=== PATIENT | male | born 1960 | race Caucasian/White ===

== ENCOUNTER 2018-06-29 20:48 | Emergency (ER) | payer BC ==
[~2018-06-29] VITALS: Ht 190.5 cm; Wt 113.6 kg
[2018-06-29 20:49] VITALS: TEMP 98.2
[2018-06-29 21:06] LABS: BASO # 0.1 (0.0-0.2); BASO % 0.4 % (0.0-2.0); EOS # 0.3 (0.0-0.7); EOS % 2.1 % (0-4.0); GRAN # 7.2 (1.4-6.5); GRAN % 53.4 % (42.2-75.2); HEMATOCRIT 45.6 % (42.0-52.0); HEMOGLOBIN 15.4 g/dl (13.5-18.0); LYMPH # 4.9 (1.2-3.4); LYMPH % 36.6 % (20.0-51.0); MEAN CELL VOLUME 89 fl (80.0-100.0); MEAN CORPUSCULAR HEMOGLOBIN 30 pg (27.0-31.0); MEAN CORPUSCULAR HGB CONC 34 g/dl (33.0-37.0); MEAN PLATELET VOLUME 10.3 fl (7.4-10.4); MONO # 0.8 (0.1-0.6); MONO % 6.2 % (1.7-9.3); PLATELET COUNT 296 K/mm3 (130-400); RED BLOOD COUNT 5.13 M/mm3 (4.20-5.60); REDCELL DISTRIBUTION WIDTH-CV 13.1 % (11.5-14.5)
[2018-06-29 21:17] LABS: PROTHROMBIN TIME 11.8 SECONDS (9.7-12.8)
[2018-06-29 21:20] LABS: PARTIAL THROMBOPLASTIN TIME 30.9 SECONDS (26.0-37.0)
[2018-06-29 21:21] LABS: ALBUMIN 3.8 gm/dL (3.5-5.0); BILIRUBIN,TOTAL 0.6 mg/dL (0.0-1.0); CALCIUM 8.3 mg/dL (8.4-10.2); CREATININE, serum 1.32 mg/dL (0.66-1.25); POTASSIUM 4.4 mmol/L (3.4-5.0); TOTAL PROTEIN 6.6 gm/dL (6.4-8.2)
[2018-06-29 21:50] VITALS: BP 134/98; PULSE 101
== END 2018-06-29 21:52 | disposition short-term general hospital (02) ==
LOC: COL.ER 20:48
PROVIDERS: Emergency Medicine
DX: S09.90XA Unspecified injury of head, initial encounter (principal); S22.49XA Multiple fractures of ribs, unspecified side, initial encounter for closed fracture; V23.4XXA Motorcycle driver injured in collision with car, pick-up truck or van in traffic accident, initial encounter; Z23 Encounter for immunization
CPT/HCPCS: J0330; J2250; J3010; J7030